=== PATIENT | female | born 1950 | race Caucasian/White ===

== ENCOUNTER 2019-07-30 13:39 | Outpatient (CLI) | payer MEDICARE, SELFPAY ==
[2019-07-30 13:58] LABS: Basophils Percent Auto 0.4 % (0.2-1.2); Eosinophils Absolute Auto 0.6 K/mm3 (0-0.3); Eosinophils Percent Auto 6.2 % (0-4.4); Hematocrit 42.9 % (37.0-47.0); Hemoglobin 13.6 g/dL (12.0-15.0); Immature Granulocyte Absolute 0.02 K/mm3 (0.00-0.031); Immature Granulocyte Percent A 0.2 % (0-0.5); Lymphocytes Absolute Auto 2.77 K/mm3 (0.9-3.2); Lymphocytes Percent Auto 28.7 % (18.3-44.2); Mean Corpuscular HGB Conc 31.7 g/dl (32-36); Mean Corpuscular Hemoglobin 27.2 pg (26-34); Mean Corpuscular Volume 85.8 fl (80-100); Mean Platelet Volume 10.3 fl (7.4-10.4); Monocytes Absolute Auto 0.5 K/mm3 (0.1-0.6); Monocytes Percent Auto 5.5 % (2.6-8.5); Neutrophils Absolute Auto 5.7 K/mm3 (1.3-6.7); Platelet Count Result 335 k/mm3 (150-375); Red Cell Distribution Width 12.8 % (11.5-14.5); White Blood Count 9.6 K/mm3 (4.5-10.0)
[2019-07-30 16:37] LABS: Iron 57 ug/dL (37-170)
[2019-07-30 16:45] LABS: Blood Urea Nitrogen 29 mg/dL (7-17); Calcium 9.8 mg/dL (8.4-10.2); Carbon Dioxide 27 mmol/L (22-30); Chloride 97 mmol/L (98-107); Estimated Glomerular Filt Rate 35; Glucose 169 mg/dL (65-105); Potassium 4.1 mmol/L (3.4-5.0); Sodium 139 mmol/L (137-145)
[2019-07-30 16:46] LABS: Percent Iron Saturation 13 % (20-50)
== END 2019-07-30 13:40 | disposition home or self-care (01) ==
PROVIDERS: PCP Family Medicine; Visit Provider Internal Medicine Hematology & Oncology
DX: D50.9 Iron deficiency anemia, unspecified (principal); D64.9 Anemia, unspecified; E53.8 Deficiency of other specified B group vitamins
CPT/HCPCS: 36415; 80048; 82728; 83540; 83550; 85025

== ENCOUNTER 2019-08-22 15:45 | Inpatient (IN) | payer MEDICARE, SELFPAY ==
[2019-08-22] VITALS (7 sets, daily range): BP systolic 124–141; BP diastolic 59–96; PULSE 100–120; RESP 20–22; TEMP 36.5–37.2; O2SAT 94–100; BMI 35.5
--- NOTE | ~2019-08-22 | XR_ITS ---
EXAMINATION: XR chest 2V EXAM DATE: 08/22/2019 17:50 INDICATION: Flu. Cough. TECHNIQUE: Frontal and lateral projections of the chest obtained and reviewed. Comparison is made to prior examination from 05/18/2019. FINDINGS: The lungs are clear. There are no pleural effusions. The cardiomediastinal silhouette is within normal limits. There is no pneumothorax suspected. There is mild to moderate mid thoracic sp ondylosis. Some midthoracic kyphosis. Upper abdominal surgical clips. IMPRESSION: No acute cardiopulmonary findings. Reviewed, dictated and finalized at location A. 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
--- NOTE | 2019-08-22 19:05 | ED.SOB ---
HPI - SOB/Dyspnea General Chief Complaint: Shortness of Breath/Dyspnea Stated Complaint: low oxygen level sent by PCP Time Seen by Provider: 08/22/19 19:00 Source: patient and RN notes reviewed Mode of arrival: ambulatory Limitations: no limitations History of Present Illness HPI Narrative: Pt is a 69 y/o female with a Hx of asthma, who presents to the ED with c/o SOB and cough starting 2 days ago. She notes that she received an iron infusion on Tuesday morning, and states that she has had SOB, a productive cough, generalized weakness, body aches, nausea, and central chest pain accompanying her cough ever since. Pt notes that she has been producing a clear mucus with her cough. She also notes having a fever earlier today, but denies any vomiting or LE edema. Pt states that she was evaluated at her PCP's office earlier today for her symptoms, but notes that her O2 saturation remained in the 80's after receiving a nebulizer treatment, prompting her to be sent to the ED. She states that she hasn't taken any medications for her symptoms. MD elicited complaint: shortness of breath and cough Pertinent past history: asthma Onset (ago): day(s) (2) Known history of: asthma Associated symptoms: chest pain (central chest pain with cough), nausea/vomiting (nausea) and other (body aches; generalized weakness) Related Data Home Medications Medication Instructions Recorded Confirmed atorvastatin 20 mg PO DAILY 05/18/19 08/22/19 losartan-hydrochlorothiazide 1 tablet PO DAILY 05/18/19 08/22/19 metformin 500 mg PO BID 05/18/19 08/22/19 diphenhydramine HCl [Benadryl] 25 mg PO HS 07/10/19 08/22/19 pramipexole 1 mg PO DAILY 07/10/19 08/22/19 Allergies Allergy/AdvReac Type Severity Reaction Status Date / Time codeine Allergy Mild Headache Verified 07/12/19 08:05 Sulfa (Sulfonamide Allergy Mild Headache Verified 07/12/19 08:05 Antibiotics) Review of Systems Review of Systems: All systems reviewed & are unremarkable except as noted in HPI and below Constitutional: Constitutional: Reports body ache(s) and Reports weakness (generalized) Cardiovascular: Cardiovascular: Reports chest pain (central chest pain with cough) and Denies leg edema Respiratory: Respiratory: Reports cough (productive) and Reports dyspnea Gastrointestinal: Gastrointestinal: Reports nausea and Denies vomiting [facility] Past Medical History Medical History Anemia Asthma Constipation DM (diabetes mellitus) Encounter for screening for malignant neoplasm of colon GERD without esophagitis Hypertension Obesity Surgical History Surgical History History of ear surgery x3 History of gastric bypass History of tonsillectomy and adenoidectomy Family History Family History Father Carcinoma of colon Mother Carcinoma of colon Other Family history of arthritis Family history of cardiovascular disease Family history of obesity Social History Social History Smoking status: Never smoker Second hand tobacco smoke exposure: No Alcohol intake: never Substance use: never Substance use type: does not use Gender identity (if verbalized by the patient): Female Spiritual care concerns: No Agree to blood products: Yes Exam Const: General: alert and ill appearing acutely Orientation/consciousness: patient oriented x3 HENMT: Head: normocephalic and atraumatic Ears: hearing grossly normal bilaterally, external ears normal and TM's normal bilaterally General nose exam: Abnormal mucous membranes and turbinates present Mouth: Yes Normal oral and palatal mucosa present and Yes lip normal Throat: posterior oropharynx normal and tonsils normal Eyes: Conjunctivae: conjunctivae normal Pupils: Equal, round and reactive pupils present Neck: Neck
[2019-08-22] MEDS: ALBUTEROL SULFATE NEB 2.5 MG/0.5 ML INH 5 MG INHALATION (19:28)
[2019-08-22] MEDS: IPRATROPIUM BR 0.02% INH SOLN 0.5 MG/2.5 ML VIAL INHALATION (19:28)
[2019-08-22 19:45] LABS: Alveolar/Arterial O2 Gradient 49.7 mmHg; Base Excess ABG 0.6 mEq/l (+/-2.0); Carboxyhemoglobin 1.1 % THb (0-2.0); Fractional Inspired Oxygen 21 %; HCO3 ABG 25.4 mEq/l (22.0-26.0); Oxygen Content ABG 16.7 %vol (16.0-22.0); Oxyhemoglobin 86.7 % THb (90.0-100.0); PCO2 ABG 41.6 mmHg (35.0-45.0); PO2 ABG 50.2 mmHg (80.0-100.0); PO2 FiO2 Ratio Arterial Blood 2.39 %; Reduced Hemoglobin 12.2 %THb (0-5.0); Total Hemoglobin 13.7 g/dL (12.0-18.0); pH ABG 7.404 (7.350-7.450)
[2019-08-22 19:46] LABS: Basophils Percent Auto 0.4 % (0.2-1.2); Eosinophils Percent Auto 0.2 % (0-4.4); Hematocrit 42.8 % (37.0-47.0); Hemoglobin 13.2 g/dL (12.0-15.0); Immature Granulocyte Absolute 0.05 K/mm3 (0.00-0.031); Immature Granulocyte Percent A 0.5 % (0-0.5); Lymphocytes Absolute Auto 0.41 K/mm3 (0.9-3.2); Lymphocytes Percent Auto 4.2 % (18.3-44.2); Mean Corpuscular HGB Conc 30.8 g/dl (32-36); Mean Corpuscular Hemoglobin 26.8 pg (26-34); Mean Platelet Volume 10.6 fl (7.4-10.4); Monocytes Percent Auto 10.1 % (2.6-8.5); Neutrophils Absolute Auto 8.2 K/mm3 (1.3-6.7); Neutrophils Percent Auto 84.6 % (45.5-73.1); Platelet Count Result 292 k/mm3 (150-375); Red Blood Count 4.92 M/mm3 (4.2-5.4); Red Cell Distribution Width 12.8 % (11.5-14.5); White Blood Count 9.7 K/mm3 (4.5-10.0)
[2019-08-22] MEDS: methylPREDNISolone SOD SUCC 125 MG VIAL IV PUSH (19:46)
[2019-08-22] MEDS: SODIUM CHLORIDE 0.9% IV 1,000 ML 999 ML IV CONT ×3 (19:46→22:01)
[2019-08-22 19:47] LABS: Modified Allen's Test Pass; Oxygen Saturation ABG 85.7 % (95.0-100.0); Site Drawn RIGHT RADIAL
[2019-08-22 19:58] LABS: Blood Urea Nitrogen 27 mg/dL (7-17); Calcium 9.1 mg/dL (8.4-10.2); Carbon Dioxide 27 mmol/L (22-30); Chloride 94 mmol/L (98-107); Estimated CRCL calculation 34 ml/min; Estimated Glomerular Filt Rate 38; Glucose 223 mg/dL (65-105); Sodium 138 mmol/L (137-145)
[2019-08-22 20:07] LABS: Lactic Acid Reflex 4.3 mmol/L (0.7-2.1)
--- NOTE | 2019-08-22 20:09 | PC.NURSE ---
Patient is on O2 2L/NC
[2019-08-22] MEDS: OSELTAMIVIR PHOSPHATE 75 MG CAP PO (20:45)
[2019-08-22 20:53] LABS: INR 1.1
[2019-08-22 20:54] LABS: Partial Thromboplastin Time 25.8 SECONDS (22.3-36.8)
--- NOTE | 2019-08-22 21:58 | PM.IMHP ---
H&P: HPI History of Present Illness Chief complaint: influenza a sepsis Narrative: This is a 69 year old Diabetic female with known HTN and RLS who presented to the hospital with a complaint of exertional shortness of breath, productive cough, wheezing and fevers since this past weekend. Associated symptoms include nausea, vomiting and diarrhea. She has also had generalized weakness. The patient did get a flu shot this year and did test positive for Influenza A tonight in the ER. Routine labs were obtained which demonstrated a lactic acid of 4.3 and acute renal failure w/ a Cr of 1.4. She has no other complaints tonight. Review of Systems Review of Systems: All systems reviewed & are unremarkable except as noted in HPI and below PMFSH Past Medical History Medical History Anemia Asthma Constipation DM (diabetes mellitus) Encounter for screening for malignant neoplasm of colon GERD without esophagitis Hypertension Obesity Surgical History Surgical History History of ear surgery x3 History of gastric bypass History of tonsillectomy and adenoidectomy Family History Family History Father Carcinoma of colon Mother Carcinoma of colon Other Family history of arthritis Family history of cardiovascular disease Family history of obesity Social History Social History Smoking status: Never smoker Second hand tobacco smoke exposure: No Alcohol intake: never Substance use: never Substance use type: does not use Gender identity (if verbalized by the patient): Female Spiritual care concerns: No Agree to blood products: Yes Meds Home Medications and Allergies Home Medications Medication Instructions Recorded Confirmed Type albuterol sulfate [Ventolin HFA] 2 puff INHALATION QID PRN #8.5 gm 05/18/19 08/22/19 Rx atorvastatin 20 mg PO DAILY 05/18/19 08/22/19 History losartan-hydrochlorothiazide 1 tablet PO DAILY 05/18/19 08/22/19 History metformin 500 mg PO BID 05/18/19 08/22/19 History polyethylene glycol 3350 17 17 gm PO DAILY PRN #119 gm 05/29/19 08/22/19 Rx gram/dose oral powder omeprazole 20 mg capsule,delayed 20 mg PO DAILY #90 cap 07/09/19 08/22/19 Rx release diphenhydramine HCl [Benadryl] 25 mg PO HS 07/10/19 08/22/19 History pramipexole 1 mg PO DAILY 07/10/19 08/22/19 History albuterol sulfate 2.5 mg INHALATION Q4-6H PRN #75 ml 08/22/19 08/22/19 Rx amoxicillin 875 mg-potassium 1 tablet PO Q12H #14 tablet 08/22/19 08/22/19 Rx clavulanate 125 mg tablet prednisone 50 mg tablet 50 mg PO DAILY #4 tablet 08/22/19 08/22/19 Rx Allergies Allergy/AdvReac Type Severity Reaction Status Date / Time codeine Allergy Mild Headache Verified 07/12/19 08:05 Sulfa (Sulfonamide Allergy Mild Headache Verified 07/12/19 08:05 Antibiotics) Vital Signs Vital Signs - 24 hr 08/22/19 15:54 08/22/19 19:38 08/22/19 19:40 Temperature 36.5 C Pulse Rate 120 H 110 H 100 Respiratory Rate 20 22 H 20 Blood Pressure 139/66 127/59 L Pulse Oximetry 100 95 08/22/19 19:56 08/22/19 20:39 08/22/19 21:55 Temperature 36.8 C Pulse Rate 111 H 112 H 113 H Respiratory Rate 20 22 H 20 Blood Pressure 124/61 136/77 Pulse Oximetry 95 94 Exam Const: General: cooperative, alert, awake, anxious and ill appearing Nutritional Appearance: overweight Orientation/consciousness: patient oriented x3 HENMT: Head: normal to inspection General nose exam: Normal external nose present Face and sinus: normal facial exam Mouth: Yes Normal oral and palatal mucosa present and Yes oropharynx normal Eyes: Pupils: Equal, round and reactive pupils present EOM: EOMs intact bilaterally Neck: Neck: supple and no JVD Thyroid: thyroid normal Lymphatic: lymphadenopathy not noted Resp: Effort
--- NOTE | 2019-08-22 22:01 | PC.NURSE ---
Patient report faxed to floor IMU.
[2019-08-22 22:43] LABS: Reflex Lactic Acid Yes or No Add Lactic
[2019-08-22 23:03] LABS: Glucose Point of Care 374 (65-105)
--- NOTE | 2019-08-22 23:06 | ADMGEN ---
This patient, Mouna Klein, was admitted to IMU Room 210-01. Patient/family oriented to hospital policies and general routines including ID bracelet, bed and alarms, visiting hours, pain management, procedures, bathroom and other care routines, personal items, smoking policy, room service/diet, and visiting hours. Valuables list has been completed. Information on how to activate the Rapid Response Team has been discussed. Patient/Family are encouraged to report perceived risks to care and to ask questions if they do not understand what they are told or what they should do.
[2019-08-22] MEDS: SODIUM CHLORIDE 0.9% IV 1,000 ML 125 ML IV CONT (23:24)
[2019-08-22 23:36] LABS: Lactic Acid 2.6 mmol/L (0.7-2.1)
[2019-08-23] VITALS (21 sets, daily range): BP systolic 98–139; BP diastolic 57–65; PULSE 73–112; RESP 16–24; TEMP 36.1–36.8; O2SAT 91–98
[2019-08-23 00:33] LABS: Add Urine Microscopic? YES; Appearance Urine Clear (Clear); Bilirubin Urine Negative (Negative); Blood Urine 1+ (Negative); Color Urine Straw (Yellow); Glucose Urine UA 3+ mg/dL (Negative); Ketones Urine Trace mg/dL (Negative); Leukocyte Esterase Ur Trace LEU/UL (Negative); Mucus Urine Rare /lpf; Nitrate Urine Negative (Negative); Protein Urine Negative (Negative); RBC Urine 0-2 /hpf (0-2); Urobilinogen Urine Negative mg/dL (<2.0); WBC Urine 16-20 /hpf
[2019-08-23] MEDS: CALCIUM CARBONATE (TUMS) 500 MG (200 MG ELEMENTAL) PO ×2 (00:49→22:21)
[2019-08-23] MEDS: IPRATROPIUM BR 0.02% INH SOLN 0.5 MG/2.5 ML VIAL INHALATION ×4 (02:44→21:10)
[2019-08-23] MEDS: ALBUTEROL SULFATE NEB 2.5 MG/0.5 ML INH 5 MG INHALATION ×4 (02:44→21:10)
[2019-08-23 05:20] LABS: Basophils Percent Auto 0.3 % (0.2-1.2); Hematocrit 37.7 % (37.0-47.0); Hemoglobin 11.5 g/dL (12.0-15.0); Immature Granulocyte Absolute 0.05 K/mm3 (0.00-0.031); Immature Granulocyte Percent A 0.8 % (0-0.5); Lymphocytes Absolute Auto 0.31 K/mm3 (0.9-3.2); Lymphocytes Percent Auto 4.8 % (18.3-44.2); Mean Corpuscular HGB Conc 30.5 g/dl (32-36); Mean Corpuscular Hemoglobin 26.7 pg (26-34); Mean Corpuscular Volume 87.5 fl (80-100); Mean Platelet Volume 10.6 fl (7.4-10.4); Monocytes Absolute Auto 0.2 K/mm3 (0.1-0.6); Monocytes Percent Auto 2.3 % (2.6-8.5); Neutrophils Absolute Auto 5.9 K/mm3 (1.3-6.7); Neutrophils Percent Auto 91.8 % (45.5-73.1); Platelet Count Result 261 k/mm3 (150-375); Red Blood Count 4.31 M/mm3 (4.2-5.4); Red Cell Distribution Width 12.7 % (11.5-14.5); White Blood Count 6.5 K/mm3 (4.5-10.0)
[2019-08-23 05:46] LABS: Alanine Aminotransferase 27 U/L (4-35); Albumin Level 3.6 g/dL (3.5-5.1); Alkaline Phosphatase 73 U/L (38-126); Aspartate Amino Transferase 36 U/L (14-36); Bilirubin,Total 0.3 mg/dL (0.2-1.3); Blood Urea Nitrogen 26 mg/dL (7-17); Calcium 8.2 mg/dL (8.4-10.2); Carbon Dioxide 25 mmol/L (22-30); Chloride 104 mmol/L (98-107); Estimated CRCL calculation 36 ml/min; Estimated Glomerular Filt Rate 38; Glucose 403 mg/dL (65-105); Potassium 3.6 mmol/L (3.4-5.0); Sodium 137 mmol/L (137-145)
[2019-08-23] MEDS: SODIUM CHLORIDE 0.9% IV 1,000 ML 125 ML IV CONT ×3 (07:38→22:20)
[2019-08-23 09:31] LABS: Glucose Point of Care 322 (65-105)
[2019-08-23] MEDS: INSULIN ASPART (*BKC) 100 UNITS/ML SUB-Q ×3 (10:00→17:31)
[2019-08-23] MEDS: predniSONE 20 MG TABLET 60 MG PO (10:01)
[2019-08-23] MEDS: INSULIN GLARGINE (*BKC) 100 UNITS/ML 26 UNITS SUB-Q (10:01)
--- NOTE | 2019-08-23 10:04 | PM.IMPN ---
Progress Note: A&P Assessment and Plan (1) Influenza A: Code(s): J10.1 - Influenza due to other identified influenza virus with other respiratory manifestations Status: Acute Assessment and Plan: Continue supportive care. Bronchodilators, IV fluids, antipyretics, antiemetic medications. Wean oxygen. Possibly home later today. (2) Acute renal failure: Qualifiers: Acute renal failure type: unspecified Qualified Code(s): N17.9 - Acute kidney failure, unspecified Code(s): N17.9 - Acute kidney failure, unspecified Status: Acute Assessment and Plan: Likely secondary to dehydration. IV fluid challenge overnight. Monitor renal function and urine output. Renally dose medications. Avoid nephrotoxic agents. Creatinine normalized to 1.1 08/22 (3) Dehydration: Code(s): E86.0 - Dehydration Status: Acute Assessment and Plan: Resolved Stop IV hydration. Monitor urine output and renal function. (4) Lactic acidosis: Code(s): E87.2 - Acidosis Status: Acute Assessment and Plan: Likely secondary to dehydration, Continue IV fluid challenge. Check reflex lactic acid. 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 (6) Hypertension: Qualifiers: Hypertension type: unspecified Qualified Code(s): I10 - Essential (primary) hypertension Code(s): I10 - Essential (primary) hypertension Status: Acute Assessment and Plan: stable. monitor blood pressure. Hold home diuretics (7) GERD without esophagitis: Code(s): K21.9 - Gastro-esophageal reflux disease without esophagitis Status: Chronic Assessment and Plan: Continue PPI therapy. (8) Asthma: Qualifiers: Asthma complication type: unspecified Asthma persistence: unspecified Asthma severity: unspecified severity Qualified Code(s): J45.909 - Unspecified asthma, uncomplicated Code(s): J45.909 - Unspecified asthma, uncomplicated Status: Chronic Assessment and Plan: Continue bronchodilators. Subjective Date/time seen: 08/23/19 10:04 Interval history: Feeling better. Denied pain. Mild RIZO. Review of Systems Review of Systems: All systems reviewed & are unremarkable except as noted in HPI and below Exam Narrative: Exam Narrative: HEENT: EOMI, PERRL, pharyngeal mucosa pink and intact NECK: No JVD, adenopathy, or thyromegaly CHEST: Scattered expiratory wheezes HEART: NL S1/S2, regular, no murmur ABDOMEN: BS+, soft, nontender, no mass, no bruits EXTREMITIES: No cyanosis, edema, or clubbing NEUROLOGIC: CN intact and symmetric to inspection. MUSCULOSKELETAL: Tone and strength symmetric. PSYCH: Alert. Oriented to person, place, and time. Objective Data Vital Signs Vital Signs: Vital Signs - 24 hr 08/22/19 15:54 08/22/19 19:38 08/22/19 19:40 Temperature 97.7 F Pulse Rate 120 H 110 H 100 Respiratory Rate 20 22 H 20 Blood Pressure 139/66 127/59 L Pulse Oximetry 100 95 08/22/19 19:56 08/22/19 20:39 08/22/19 21:55 Temperature 98.2 F Pulse Rate 111 H 112 H 113 H Respiratory Rate 20 22 H 20 Blood Pressure 124/61 136/77 Pulse Oximetry 95 94 08/22/19 22:55 08/23/19 00:00 08/23/19 01:29 Temperature 99.0 F 97.8 F Pulse Rate 112 H 112 H 101 H Respiratory Rate 22 H 24 H Blood Pressure 141/96 H 128/57 L Pulse Oximetry 96 92 08/23/19 02:00 08/23/19 02:47 08/23/19 04:00 Temperature Pulse Rate 106 H 91 103 H Respiratory Rate 16 Blood Pressure Pulse Oximetry
[2019-08-23 11:25] LABS: Hemoglobin A1C 9.6 % (<5.7)
[2019-08-23 13:11] LABS: Glucose Point of Care 450 (65-105)
[2019-08-23] MEDS: PRAMIPEXOLE 1 MG TABLET PO ×2 (15:06→22:20)
[2019-08-23] MEDS: PANTOPRAZOLE SOD SESQUIHYDRATE 20 MG TAB PO (15:06)
[2019-08-23] MEDS: ATORVASTATIN 20 MG TABLET PO (15:07)
[2019-08-23 15:17] LABS: Glucose Point of Care 385 (65-105)
[2019-08-23 17:30] LABS: Glucose Point of Care 376 (65-105)
[2019-08-23 20:49] LABS: Glucose Point of Care 360 (65-105)
[2019-08-23] MEDS: INSULIN ASPART (*BKC) 100 UNITS/ML 6 UNITS SUB-Q (22:21)
[2019-08-24] VITALS: BP 111/64; PULSE 104; RESP 18; TEMP 36.2; O2SAT 97
[2019-08-24 00:04] LABS: Glucose Point of Care 251 (65-105)
[2019-08-24 02:15] VITALS: PULSE 100; RESP 16
[2019-08-24] MEDS: IPRATROPIUM BR 0.02% INH SOLN 0.5 MG/2.5 ML VIAL INHALATION ×2 (02:15→08:55)
[2019-08-24] MEDS: ALBUTEROL SULFATE NEB 2.5 MG/0.5 ML INH 5 MG INHALATION ×2 (02:15→08:56)
[2019-08-24 02:24] VITALS: PULSE 100; RESP 16
[2019-08-24 03:54] VITALS: BP 138/72; PULSE 107; RESP 20; TEMP 37.1; O2SAT 98
[2019-08-24 05:39] LABS: Blood Urea Nitrogen 27 mg/dL (7-17); Calcium 8.1 mg/dL (8.4-10.2); Carbon Dioxide 25 mmol/L (22-30); Chloride 108 mmol/L (98-107); Cholesterol 113 mg/dL (0-200); Estimated CRCL calculation 41 ml/min; Estimated Glomerular Filt Rate 45; Glucose 178 mg/dL (65-105); HDL Direct 58 mg/dL; Potassium 3.2 mmol/L (3.4-5.0); Sodium 141 mmol/L (137-145); Triglycerides 57 mg/dL (<150)
[2019-08-24 05:49] LABS: LDL Cholesterol Direct 45 mg/dL
[2019-08-24 07:33] LABS: Glucose Point of Care 170 (65-105)
[2019-08-24 08:00] VITALS: BP 148/85; PULSE 97; RESP 20; TEMP 36.3; O2SAT 99
[2019-08-24] MEDS: predniSONE 20 MG TABLET 60 MG PO (08:18)
[2019-08-24] MEDS: PANTOPRAZOLE SOD SESQUIHYDRATE 20 MG TAB PO (08:18)
[2019-08-24] MEDS: ATORVASTATIN 20 MG TABLET PO (08:18)
--- NOTE | 2019-08-24 10:48 | PM.DS ---
DS: Diagnosis Admitting Diagnosis Admitting Diagnosis: Influenza due to other identified influenza virus with other respiratory manifestations Discharge Diagnosis (1) Influenza A: Code(s): J10.1 - Influenza due to other identified influenza virus with other respiratory manifestations Status: Acute Assessment and Plan: Continue symptomatic treatment at home with short course of prednisone. (2) Acute renal failure: Qualifiers: Acute renal failure type: unspecified Qualified Code(s): N17.9 - Acute kidney failure, unspecified Code(s): N17.9 - Acute kidney failure, unspecified Status: Acute Assessment and Plan: Likely secondary to dehydration. IV fluid challenge overnight. Monitor renal function and urine output. Renally dose medications. Avoid nephrotoxic agents. Creatinine normalized to 1.1 08/22 (3) Dehydration: Code(s): E86.0 - Dehydration Status: Acute Assessment and Plan: Resolved (4) Lactic acidosis: Code(s): E87.2 - Acidosis Status: Acute Assessment and Plan: Likely secondary to dehydration, resolved (5) DM (diabetes mellitus): Qualifiers: Diabetes mellitus complication status: without complication Diabetes mellitus mcfp insulin use: without mcfp use Diabetes mellitus type: type 2 Qualified Code(s): E11.9 - Type 2 diabetes mellitus without complications Code(s): E11.9 - Type 2 diabetes mellitus without complications Status: Chronic Assessment and Plan: Resume metformin (6) Hypertension: Qualifiers: Hypertension type: unspecified Qualified Code(s): I10 - Essential (primary) hypertension Code(s): I10 - Essential (primary) hypertension Status: Acute Assessment and Plan: Resume home meds (7) GERD without esophagitis: Code(s): K21.9 - Gastro-esophageal reflux disease without esophagitis Status: Chronic Assessment and Plan: Continue PPI therapy. (8) Asthma: Qualifiers: Asthma complication type: unspecified Asthma persistence: unspecified Asthma severity: unspecified severity Qualified Code(s): J45.909 - Unspecified asthma, uncomplicated Code(s): J45.909 - Unspecified asthma, uncomplicated Status: Chronic Assessment and Plan: Continue bronchodilators. DS: Summary Hospital Course Reason for hospitalization: Dyspnea Hospital Course: Patient presented with dyspnea. Was influenza A positive. Past went or treatment with Tamiflu. Therefore received supportive care with IV fluid steroids and bronchodilators. By day of discharge she was up and about independently telling her diet afebrile with stable vital signs. Lactic acidosis and acute renal failure had resolved as noted under the problem list. Time Spent with Patient Time attestation: Total time spent providing and/or coordinating discharge services: Exam Narrative: Exam Narrative: HEENT: EOMI, PERRL, pharyngeal mucosa pink and intact NECK: No JVD, adenopathy, or thyromegaly CHEST: Slightly coarse BS HEART: NL S1/S2, regular, no murmur ABDOMEN: BS+, soft, nontender, no mass, no bruits EXTREMITIES: No cyanosis, edema, or clubbing NEUROLOGIC: CN intact and symmetric to inspection. MUSCULOSKELETAL: Tone and strength symmetric. PSYCH: Alert. Oriented to person, place, and time. DS: Data Data Completed and Pending Labs on day of discharge: Labs from last 24 hours 08/24/19 08/24/19 08/24/19 07:23 04:26 00:01 Sodium 141 Potassium 3.2 L Chloride 108 H Carbon Dioxide 25 BUN 27 H Creatinine 1.20 H Estim Creat Clear Calc 41 Estimated GFR 45 L Glucose 178 H POC Capillary Glucose 170 H 251 H Hemoglobin A1c Calcium 8.1 L Triglycerides 57 Cholesterol 113 LDL Cholesterol Direct 45 HDL Direct 58 08/23/19 08/23/19 08/23/19 20:44 16:54 15:05 Sodium Potassium Chloride Carbon
[2019-08-24] MEDS: POTASSIUM CHLORIDE 20 MEQ TABLET 40 MEQ PO (11:46)
== END 2019-08-24 12:25 | disposition home or self-care (01) | DRG 194 ==
LOC: ANHED 20:44 → ANHIMU 22:33
PROVIDERS: Emergency Medicine; Admitting Provider Family Medicine; Emergency Provider General Practice; PCP Family Medicine; Visit Provider Internal Medicine
DX: J10.1 Influenza due to other identified influenza virus with other respiratory manifestations (principal); N17.9 Acute kidney failure, unspecified; E87.2 Acidosis; E11.9 Type 2 diabetes mellitus without complications; I10 Essential (primary) hypertension; G25.81 Restless legs syndrome; J45.909 Unspecified asthma, uncomplicated; K21.9 Gastro-esophageal reflux disease without esophagitis; E66.9 Obesity, unspecified; Z68.34 Body mass index [BMI] 34.0-34.9, adult; E86.0 Dehydration
CPT/HCPCS: 36415; 36600; 71046; 80048; 80053; 80061; 81001; 82375; 82805; 83036; 83050; 83605; 85025; 85610; 85730; 87040; 87086; 87088; 87804; 94640; 96361; 96374; 99291; A9270; J1815; J2930; J7030; J7512

== ENCOUNTER 2019-12-12 15:28 | Outpatient (CLI) | payer MEDICARE, SELFPAY ==
--- NOTE | ~2019-12-12 | XR_ITS ---
EXAMINATION: XR chest 2V EXAM DATE: 12/12/2019 17:54 INDICATION: Shortness of breath, cough since August. Weight loss. TECHNIQUE: Frontal and lateral projections of the chest obtained and reviewed. Comparison is made to prior examination from 08/22/2019. FINDINGS: The lungs are clear. There are no pleural effusions. The cardiomediastinal silhouette is within normal limits. There is no pneumothorax suspected. Mild to moderate mid thoracic spondylosis . There are cholecystectomy clips. There is no significant interval change. IMPRESSION: No acute cardiopulmonary findings. Reviewed, dictated and finalized at location A.
[2019-12-18 15:15] LABS: Reference Lab Test Result Negative
== END 2019-12-12 15:29 | disposition home or self-care (01) ==
PROVIDERS: PCP Family Medicine; Visit Provider Nurse Practitioner
DX: R06.02 Shortness of breath (principal); R05 Cough; R63.4 Abnormal weight loss; Z01.84 Encounter for antibody response examination
CPT/HCPCS: 36415; 71046; 86769

== ENCOUNTER 2020-01-14 08:43 | Outpatient (CLI) | payer MEDICARE, SELFPAY ==
--- NOTE | 2020-01-14 16:04 | WPDPFTINT ---
PFT Interpretation PFT Interpretation: DOS: 7212/2019 REQUESTING: Laura Penn NP REASON FOR TESTING: Cough PULMONARY FUNCTION TESTS The results are not reproducible due to coughing, and for this reason she was not able to complete lung volumes. Spirometry: FEV1 is 40%, severely decreased. FVC is 46%, severely decreased. The FEV1% is decreased consistent with airflow obstruction. No bronchodilator was given. Lung volumes: Not obtainable due to coughing. Diffusion: DLCO 63%< mildly decreased. Flow volume loop: Not reliable. Cannot be interpreted. IMPRESSION: Results are not reliable due to excessive coughing. Suspected severe obstructive ventilatory defect with mild diffusion impairment. Ashley Segundo MD
== END 2020-01-14 08:44 | disposition home or self-care (01) ==
PROVIDERS: PCP Family Medicine; Visit Provider Nurse Practitioner
DX: R05 Cough (principal)
CPT/HCPCS: 94375; 94729

== ENCOUNTER 2020-07-22 06:52 | Outpatient (NON) | payer MEDICARE, SELFPAY ==
[2020-07-23 17:16] LABS: SARS-CoV-2 RNA PCR Negative
== END 2020-07-22 06:53 ==
LOC: ANHCOVIDDT 06:55
PROVIDERS: PCP Family Medicine; Visit Provider Nurse Practitioner
DX: Z20.822 Contact with and (suspected) exposure to COVID-19 (principal)
CPT/HCPCS: C9803; U0003; U0005